=== PATIENT | male | born 2000 | race Two or more races ===

== ENCOUNTER 2019-02-01 13:25 | Emergency (ER) | payer SELFPAY ==
[~2019-02-01] VITALS: Ht 160 cm; Wt 46.7 kg
[2019-02-01 14:35] VITALS: BP 119/81
[2019-02-01 14:37] LABS: Alcohol, Urine < 3.0 mg/dL (0-5); Amphetamine Screen, Urine NEGATIVE (NEGATIVE); Barbiturate Scree,Urine NEGATIVE (NEGATIVE); Benzodiazephine Screen, Urine NEGATIVE (NEGATIVE); Cannabinoid Screen, Urine POSITIVE (NEGATIVE); Cocaine Screen, Urine NEGATIVE (NEGATIVE); Phencyclidine Screen, Urine NEGATIVE (NEGATIVE)
[2019-02-01 14:45] LABS: Opiate Scree,Urine NEGATIVE (NEGATIVE)
[2019-02-01] MEDS ORDERED: diphenhdrAMINE HCL 50 MG/1 ML VL IM ONE (15:00)
== END 2019-02-01 16:00 | disposition home or self-care (01) ==
LOC: ER 13:31
DX: F41.1 Generalized anxiety disorder (principal); F11.23 Opioid dependence with withdrawal; F12.10 Cannabis abuse, uncomplicated
CPT/HCPCS: 80307; 96372; 99284; J1200